=== PATIENT | male | born 1955 | race Caucasian/White ===

== ENCOUNTER 2019-08-04 14:42 | Emergency (ER) | payer BC ==
--- NOTE | 2019-08-04 15:13 | ER Document Report ---
ED Blood Sugar Problem - General Chief Complaint: High Blood Sugar Stated Complaint: BLOOD SUGAR PROBLEMS Time Seen by Provider: 08/04/19 15:12 Primary Care Provider: THEO ZUNIGA MD [Primary Care Provider] - Follow up as needed Mode of Arrival: Ambulatory Information source: Patient Notes: Patient is a 64-year-old male with type 2 diabetes presenting to the emergency department with concern for elevated blood sugars over the last 2 weeks. Patient reports he took a round of prednisone for foot pain as prescribed by his primary care physician. He states ever since then his sugars have been elevated. He is reporting increased thirst. He states he takes metformin 1000 mg twice daily for his diabetes, he does not take insulin and has never had insulin in the past. He denies any other symptoms. - Related Data Allergies/Adverse Reactions: No Known Allergies Allergy (Verified 08/04/19 15:07) Home Medications: metformin Past Medical History - General Information source: Patient - Social History Smoking Status: Former Smoker Frequency of alcohol use: None Drug Abuse: None Family History: Reviewed & Not Pertinent Patient has suicidal ideation: No Patient has homicidal ideation: No Endocrine Medical History: Reports: Hx Diabetes Mellitus Type 2 Review of Systems - Review of Systems Constitutional: Other - Polydipsia -: Yes All other systems reviewed and negative Physical Exam - Vital signs Vitals: Temp Pulse Resp BP Pulse Ox 98.1 F 86 14 158/87 H 99 08/04/19 14:46 08/04/19 14:46 08/04/19 14:46 08/04/19 14:46 08/04/19 14:46 - Notes Notes: PHYSICAL EXAMINATION: GENERAL: Well-appearing, well-nourished and in no acute distress. HEAD: Atraumatic, normocephalic. EYES: Pupils equal round and reactive to light, extraocular movements intact, sclera anicteric, conjunctiva are normal. ENT: Nares patent, oropharynx clear without exudates. Moist mucous membranes. NECK: Normal range of motion, supple without lymphadenopathy LUNGS: Breath sounds clear to auscultation bilaterally and equal. No wheezes rales or rhonchi. HEART: Regular rate and rhythm without murmurs ABDOMEN: Soft, nontender, nondistended abdomen. No guarding, no rebound. No masses appreciated. Musculoskeletal: Normal range of motion, no pitting or edema. No cyanosis. NEUROLOGICAL: Cranial nerves grossly intact. Normal speech, normal gait. Normal sensory, motor exams PSYCH: Normal mood, normal affect. SKIN: Warm, Dry, normal turgor, no rashes or lesions noted. Course - Re-evaluation Re-evalutation: No evidence of diabetic ketoacidosis noted in laboratory studies. Patient appears well, nontoxic, vital signs within normal limits. Patient received IV fluids here in the emergency department and his blood sugar did come down to 440. He is never had insulin before so I am apprehensive about giving him any. I do think that his hyperglycemia is related to the recent steroid use. He has an appointment tomorrow with his primary care provider to follow-up regarding his hyperglycemia. - Vital Signs Vital signs: Temp Pulse Resp BP Pulse Ox 98.1 F 78 16 162/80 H 100 08/04/19 14:46 08/04/19 16:57 08/04/19 16:57 08/04/19 16:57 08/04/19 16:57 - Laboratory Result Diagrams: 08/04/19 15:15 08/04/19 15:15 Laboratory results interpreted by me: 08/04/19 08/04/19 08/04/19 15:15 15:15 16:37 RBC 4.29 L Sodium 129.4 L Chloride 95 L Glucose 515 H* POC Glucose 406 H* ALT 64 H Discharge - Discharge Clinical Impression: Hyperglycemia Condition: Stable Disposition: HOME, SELF-CARE Additional Instructions: Your blood sugar was elevated in the emergency department today however your labs showed no signs of diabetic ketoacidosis. Please keep the appointment that you have with your primary care provider for tomorrow. Please keep taking her medication as prescribed. Try to stay away from any foods or drinks that have carbohydrates in them. Referrals: THEO ZUNIGA MD [Primary Care Provider] - Follow up as needed
[2019-08-04] MEDS ORDERED: NORMAL SALINE 1000 ML 1,000 ML IV ONE (15:26)
[2019-08-04 15:30] LABS: ABSOLUTE BASOPHILS # (AUTO) 0.1 10^3/uL (0.0-0.2); ABSOLUTE EOSINOPHILS # (AUTO) 0.1 10^3/uL (0.0-0.6); ABSOLUTE LYMPHOCYTES (AUTO) 2.3 10^3/uL (0.5-4.7); ABSOLUTE MONOCYTES (AUTO) 0.5 10^3/uL (0.1-1.4); ABSOLUTE NEUT (AUTO) 3.2 10^3/uL (1.7-8.2); BASOPHILS % (AUTO) 1.1 % (0-2); EOSINOPHILS % (AUTO) 1.7 % (0-6); HEMATOCRIT 38.2 % (37.9-51.0); HEMOGLOBIN 13.7 g/dL (13.5-17.0); LYMPHOCYTES % (AUTO) 37.6 % (13-45); MEAN CORPUSCULAR HEMOGLOBIN 31.9 pg (27.0-33.4); MEAN CORPUSCULAR HGB CONC 35.8 g/dL (32.0-36.0); MEAN CORPUSCULAR VOLUME 89 fl (80-97); MONOCYTES % (AUTO) 7.7 % (3-13); PLATELET COUNT 231 10^3/uL (150-450); RED BLOOD COUNT 4.29 10^6/uL (4.35-5.55); RED CELL DISTRIBUTION WIDTH 12.1 % (11.5-14.0); SEGMENTED NEUTROPHILS % (AUTO) 51.9 % (42-78); TOTAL CELLS COUNTED % (AUTO) 100 %; WHITE BLOOD COUNT 6.1 10^3/uL (4.0-10.5)
[2019-08-04 15:44] LABS: ALBUMIN 4.4 g/dL (3.5-5.0); ALKALINE PHOSPHATASE 94 U/L (38-126); ANION GAP 10 (5-19); ASPARTATE AMINO TRANSFERASE 38 U/L (17-59); BILIRUBIN,DIRECT 0.1 mg/dL (0.0-0.4); BILIRUBIN,TOTAL 0.4 mg/dL (0.2-1.3); BLOOD UREA NITROGEN 19 mg/dL (7-20); CALCIUM 9.4 mg/dL (8.4-10.2); CARBON DIOXIDE 24 mmol/L (22-30); CHLORIDE 95 mmol/L (98-107); POTASSIUM 4.9 mmol/L (3.6-5.0); TOTAL PROTEIN 7.2 g/dL (6.3-8.2)
[2019-08-04 15:53] LABS: GLUCOSE 515 mg/dL (75-110)
[2019-08-04 16:57] VITALS: BP 162/80
== END 2019-08-04 16:55 | disposition home or self-care (01) ==
LOC: ER 14:42
DX: E11.65 Type 2 diabetes mellitus with hyperglycemia (principal); Z79.84 Long term (current) use of oral hypoglycemic drugs; Z87.891 Personal history of nicotine dependence
CPT/HCPCS: 99284; 36415; 82962; 85025; 80053; J7030; 96360